=== PATIENT | male | born 1970 | race Caucasian/White ===

== ENCOUNTER → 2025-01-12 08:57 | Outpatient (CLI) | payer OTHER, SELFPAY | PROVIDERS: Referring Provider Chiropractor; Visit Provider Chiropractor | DX: J42 Unspecified chronic bronchitis (principal) | CPT/HCPCS: 94060 ==

== ENCOUNTER → 2025-07-07 08:46 | Outpatient (CLI) | payer OTHER, SELFPAY ==
--- NOTE | 2025-07-07 08:48 | DI.US.S_ITS ---
PROCEDURE: US ABDOMEN LIMITED INDICATIONS: TRANSAMINITIS TECHNIQUE: Real-time scanning was performed of the abdominal and retroperitoneal organs, with image documentation. Twenty-seven images. COMPARISON: None. FINDINGS: Liver: Moderate diffuse increased echogenicity of the liver commonly hepatic steatosis or intrinsic hepatic disease. No ultrasound evidence of focal hepatic lesion. Liver measures approximately 15.1 cm in CC dimension of the right lobe. Gallbladder: Gallbladder is nondistended. No ultrasound evidence of gallstones, no gallbladder wall thickening, no pericholecystic fluid. Sonographic Delacruz sign is not delineated. Biliary ducts: Intrahepatic bile ducts are non-dilated. Extrahepatic bile duct caliber measures 5 mm. Normal is 7 mm or less in diameter. Pancreas: Pancreas is not visualized per notes. IMPRESSION: Moderate diffuse increased echogenicity of the liver as discussed above. If symptoms persist or worsen, or there is high clinical suspicion of hepatic or other abdominal abnormality, CT could be performed. Dictated by: Jan Montenegro M.D. on 07/07/2025 at 10:19 Approved by: Jan Montenegro M.D. on 07/07/2025 at 10:26
== END ==
LOC: US 08:48
PROVIDERS: Referring Provider Nurse Practitioner Family; Visit Provider Nurse Practitioner Family
DX: Z01.89 Encounter for other specified special examinations (principal)
CPT/HCPCS: 76705